=== PATIENT | male | born 1955 | race Hispanic/Latino ===

== ENCOUNTER 2017-06-17 17:42 | Emergency (ER) | payer BC, MEDICARE ==
[2017-06-17] MEDS ORDERED: ZOFRAN ONE (17:45)
[2017-06-17] MEDS ORDERED: GLUCAGEN IV ONE (17:50)
[2017-06-17] MEDS ORDERED: GLUCAGEN ONE (17:50)
--- NOTE | 2017-06-17 17:52 | Emergency Department Report ---
ED General Adult HPI - General Chief complaint: Skin/Abscess/Foreign Body Stated complaint: OBSTRUCTION OF THE AIRWAY Time Seen by Provider: 06/17/17 17:51 Source: patient, RN notes reviewed, old records reviewed Mode of arrival: Ambulatory Limitations: No Limitations - History of Present Illness Initial comments: This is a 62-year-old male. He is previously unknown to me. He reports that past medical history of COPD. He presents to the ER complaining of feeling like a Prozac pill is stuck in his throat. He took the pill prior to arriving at the emergency room. He denies headache, neck pain, chest pain, abdominal pain, shortness of breath. He feels like the pill is stuck in his mouth. His symptoms are constant. They do not have exacerbating or relieving factors. -: Sudden Severity scale (0 -10): 0 Consistency: constant Improves with: none Worsens with: none Associated Symptoms: denies: confusion, chest pain, loss of appetite, malaise - Related Data Previous Rx's Medication Instructions Recorded Last Taken Type Ondansetron [Zofran Odt] 4 mg PO QID PRN #20 tab.rapdis 06/17/17 Unknown Rx Allergies Allergy/AdvReac Type Severity Reaction Status Date / Time No Known Allergies Allergy Unverified 05/30/15 11:00 ED Review of Systems ROS: Stated complaint: OBSTRUCTION OF THE AIRWAY Other details as noted in HPI Constitutional: denies: fever Eyes: denies: vision change ENT: denies: epistaxis Respiratory: denies: cough Cardiovascular: denies: chest pain Gastrointestinal: denies: abdominal pain Genitourinary: as per HPI Musculoskeletal: as per HPI Skin: as per HPI Neurological: denies: confusion Psychiatric: anxiety ED Past Medical Hx - Past Medical History Hx of Cancer: Yes (melanoma) Hx COPD: Yes Additional medical history: "digestive problems" - Surgical History Past Surgical History?: Yes - Social History Smoking Status: Current Every Day Smoker - Medications Home Medications: Home Medications Medication Instructions Recorded Confirmed Last Taken Type Ondansetron [Zofran Odt] 4 mg PO QID PRN #20 tab.rapdis 06/17/17 Unknown Rx ED Physical Exam - General Limitations: No Limitations General appearance: alert, in no apparent distress - Head Head exam: Present: atraumatic, normocephalic - Eye Eye exam: Present: normal appearance, EOMI. Absent: nystagmus - ENT ENT exam: Present: normal exam, normal orophraynx, mucous membranes moist, normal external ear exam - Neck Neck exam: Present: normal inspection, full ROM. Absent: tenderness, meningismus - Respiratory Respiratory exam: Present: normal lung sounds bilaterally. Absent: respiratory distress, wheezes, rales, rhonchi, stridor, chest wall tenderness, accessory muscle use, decreased breath sounds, prolonged expiratory - Cardiovascular Cardiovascular Exam: Present: normal rhythm, tachycardia, normal heart sounds. Absent: systolic murmur, diastolic murmur, rubs, gallop - GI/Abdominal GI/Abdominal exam: Present: soft, normal bowel sounds. Absent: distended, tenderness, guarding, rebound, rigid, pulsatile mass - Rectal Rectal exam: Present: deferred - Extremities Exam Extremities exam: Present: normal inspection, full ROM, normal capillary refill. Absent: pedal edema, joint swelling, calf tenderness - Back Exam Back exam: Present: normal inspection, full ROM. Absent: tenderness, CVA tenderness (R), CVA tenderness (L), muscle spasm, paraspinal tenderness, vertebral tenderness - Neurological Exam Neurological exam: Present: alert, oriented X3, normal gait, other (Extraocular movements intact. Tongue midline. No facial droop. Facial sensation intact to light touch in the V1, V2, V3 distribution bilaterally. 5 and 5 strength in 4 extremities.. Sensation is intact to light touch in 4 extremities.). Absent : motor sensory deficit - Psychiatric Psychiatric exam: Present: anxious - Skin Skin exam: Present: warm, dry, intact, normal color. Absent: rash ED Course Vital Signs 06/17/17 17:48 Temperature 97.8 F Pulse Rate 108 H Respiratory 13 Rate Blood Pressure 118/74 [Right] O2 Sat by Pulse 97 Oximetry ED Medical Decision Making - Lab Data Result diagrams: 06/17/17 18:34 06/17/17 18:34 Vital Signs 06/17/17 17:48 Temperature 97.8 F Pulse Rate 108 H Respiratory 13 Rate Blood Pressure 118/74 [Right] O2 Sat by Pulse 97 Oximetry Lab Results 06/17/17 06/17/17 06/17/17 Range/Units 18:34 18:34 18:34 WBC 9.4 (4.5-11.0) K/mm3 RBC 4.12 (3.65-5.03) M/mm3 Hgb 13.4 (11.8-15.2) gm/dl Hct 40.4 (35.5-45.6) % MCV 98 H (84-94) fl MCH 33 H (28-32) pg MCHC 33 (32-34) % RDW 14.1 (13.2-15.2) % Plt Count 256 (140-440) K/mm3 Lymph % (Auto) 27.5 (13.4-35.0) % [place] % (Auto) 5.5 (0.0-7.3) % Eos % (Auto) 0.5 (0.0-4.3) % Baso % (Auto) 0.5 (0.0-1.8) % Lymph # 2.6 (1.2-5.4) K/mm3 [place] # 0.5 (0.0-0.8) K/mm3 Eos # 0.0 (0.0-0.4) K/mm3 Baso # 0.0 (0.0-0.1) K/mm3 Seg Neutrophils % 66.0 (40.0-70.0) % Seg Neutrophils # 6.2 (1.8-7.7) K/mm3 PT 12.0 L (12.2-14.9) Sec. INR 0.90 (0.87-1.13) APTT 25.0 (24.2-36.6) Sec. Sodium 135 L (137-145) mmol/L Potassium 4.4 (3.6-5.0) mmol/L Chloride 96.2 L (98-107) mmol/L Carbon Dioxide 22 (22-30) mmol/L Anion Gap 21 mmol/L BUN 10 (9-20) mg/dL Creatinine 0.9 (0.8-1.5) mg/dL Estimated GFR > 60 ml/min BUN/Creatinine Ratio 11.11 % Glucose 89 (75-100) mg/dL Calcium 9.2 (8.4-10.2) mg/dL - Radiology Data Radiology results: image reviewed interpreted by me: X-ray the chest demonstrates chronic emphysematous changes, no acute disease. No obvious retained foreign body. Soft tissue neck x-ray demonstrates no obvious retained foreign body. - Medical Decision Making Differential diagnosis: Foreign body, upper airway, partial obstruction, now resolved Assessment and plan: 62-year-old male with complaint of subjective pill that is lodged in his esophagus. He is afebrile, initially tachycardic but this has since resolved. He is speaking full sentences with no stridor or dysphonia and no desaturation. Plain films demonstrate no obvious radiopaque foreign body. The patient is given Zofran, glucagon, reports his symptoms are markedly improved, and indicates he is able to tolerate liquid feeds. Furthermore, I my direct examination and also has been the nurse's examination, he is able to tolerate liquid feeds. Patient has a private wide load escort he can follow- up with. He will be discharged at this time. His tachycardia has resolved on my physical examination. Return precautions are reviewed. Critical care attestation.: If time is entered above; I have spent that time in minutes in the direct care of this critically ill patient, excluding procedure time. ED Disposition Clinical Impression: History of foreign body aspiration Disposition: - TO HOME OR SELFCARE Is pt being admited?: No Does the pt Need Aspirin: No Condition: Stable Instructions: Foreign Body Ingestion (ED) Additional Instructions: Continue current outpatient medications. Follow up with your wide load escort within the next 7-10 days. Return to the ER right away with fevers, chills, chest pain, shortness of breath, intractable nausea or vomiting , confusion, inability to tolerate liquid feeds. Referrals: PRIMARY CARE, [Primary Care Provider] - 3-5 Days AREN KATE MD [Staff Physician] - 3-5 Days
[2017-06-17] MEDS ORDERED: ZOFRAN IV ONE (17:55)
[2017-06-17 18:47] LABS: Basophils % (Auto) 0.5 % (0.0-1.8); Eosinophils % (Auto) 0.5 % (0.0-4.3); Hematocrit 40.4 % (35.5-45.6); Hemoglobin 13.4 gm/dl (11.8-15.2); Mean Corpuscular HGB Conc 33 % (32-34); Mean Corpuscular Hemoglobin 33 pg (28-32); Mean Corpuscular Volume 98 fl (84-94); Platelet Count 256 K/mm3 (140-440); Red Blood Count 4.12 M/mm3 (3.65-5.03); Red Cell Distribution Width 14.1 % (13.2-15.2); White Blood Count 9.4 K/mm3 (4.5-11.0)
[2017-06-17 18:55] LABS: INR 0.9 (0.87-1.13)
[2017-06-17 19:09] LABS: Anion Gap 21 mmol/L; BUN/Creatinine Ratio 11.11; Blood Urea Nitrogen 10 mg/dL (9-20); Calcium 9.2 mg/dL (8.4-10.2); Carbon Dioxide 22 mmol/L (22-30); Chloride 96.2 mmol/L (98-107); Glucose 89 mg/dL (75-100); Potassium 4.4 mmol/L (3.6-5.0); Sodium 135 mmol/L (137-145)
[2017-06-17 19:55] VITALS: BP 111/65
--- NOTE | 2017-06-18 09:20 | XRay Report ---
Single view chest: History: Foreign body. Findings: Normal cardiomediastinal silhouette. Trachea is midline. Suspicion of COPD. No consolidation or pleural effusion. No radiopaque foreign body. Impression: COPD. No acute lung changes.
--- NOTE | 2017-06-18 09:21 | XRay Report ---
Soft tissue neck 3 views: History: Foreign body. Findings: Cervical spondylosis. Normal prevertebral soft tissue. Normal air Column. No radiopaque foreign body. Impression: No radiopaque foreign body seen.
== END 2017-06-17 19:45 | disposition home or self-care (01) ==
LOC: ED 17:42
DX: T17.208A Unspecified foreign body in pharynx causing other injury, initial encounter (principal); Y92.9 Unspecified place or not applicable; J44.9 Chronic obstructive pulmonary disease, unspecified; F17.200 Nicotine dependence, unspecified, uncomplicated
CPT/HCPCS: 36415; 70360; 71010; 80048; 85025; 85610; 85730; 96374; 96375; 99284; J1610; J2405

== ENCOUNTER 2019-04-01 20:46 | Emergency (ER) | payer BC, MEDICARE ==
[2019-04-01] MEDS ORDERED: SOLU-Medrol IV ONE (21:41)
[2019-04-01] MEDS ORDERED: PROVENTIL IH ONE (21:41)
[2019-04-01] MEDS ORDERED: ATROVENT IH ONE (21:41)
[2019-04-01 22:03] LABS: Basophils % (Auto) 0.2 % (0.0-1.8); Eosinophils # (Auto) 0.1 K/mm3 (0.0-0.4); Eosinophils % (Auto) 1.1 % (0.0-4.3); Hematocrit 36.2 % (35.5-45.6); Hemoglobin 12.4 gm/dl (11.8-15.2); Lymphocytes # (Auto) 2.2 K/mm3 (1.2-5.4); Lymphocytes % (Auto) 22.9 % (13.4-35.0); Mean Corpuscular HGB Conc 34 % (32-34); Mean Corpuscular Volume 91 fl (84-94); Platelet Count 190 K/mm3 (140-440); Red Blood Count 3.97 M/mm3 (3.65-5.03); Red Cell Distribution Width 14.9 % (13.2-15.2)
[2019-04-01 22:14] LABS: INR 0.95 (0.87-1.13)
[2019-04-01 22:15] LABS: Partial Thromboplastin Time 31.5 Sec. (24.2-36.6)
[2019-04-01 22:26] LABS: BUN/Creatinine Ratio 11; Blood Urea Nitrogen 10 mg/dL (9-20); Calcium 8.7 mg/dL (8.4-10.2); Hemolysis Index 3
--- NOTE | 2019-04-01 23:00 | Emergency Department Report ---
- General Chief Complaint: Dyspnea/Respdistress Stated Complaint: SOB Time Seen by Provider: 04/01/19 21:28 Source: patient Mode of arrival: Ambulatory Limitations: No Limitations - History of Present Illness Initial Comments: 64-year-old male history of COPD (2 L at home), and CHF presents to ED with complaint of productive cough 1 week shortness of breath. Patient reports cou gh productive of green sputum. Denies fever. States has been using his nebulizer treatments at home. Denies swelling to the lower extremities. Reports chest pain with cough. MD Complaint: cough -: week(s) (1) Severity: moderate Quality: aching Consistency: constant Improves With: nothing Worsens With: nothing Associated Symptoms: cough, chest pain (with cough), shortness of breath. denies: fever, chills - Related Data Home Medications Medication Instructions Recorded Confirmed Last Taken ALBUTEROL Inhaler (OR & NICU) 1 - 2 puff IH BID 07/04/18 10/10/18 09/03/18 [ProAir HFA Inhaler] Budesonide [Pulmicort] 0.5 mg IH Q12H 07/04/18 10/10/18 09/02/18 Carbidopa/Levodopa 25-100 [Sinemet 1 each PO TID 07/04/18 10/10/18 09/03/18 25/100] FLUoxetine HCL [Fluoxetine HCl] 80 mg PO DAILY 07/04/18 10/10/18 09/02/18 Fluticasone/Salmeterol [Advair 1 puff IH BID 07/04/18 10/10/18 09/02/18 Diskus 250-50 mcg] Hyoscyamine Sulfate [Hyoscyamine 0.375 mg PO BID 07/04/18 10/10/18 09/03/18 Sulfate ER] Ipratropium/Albuterol Sulfate 1 ampul IH Q6HR 07/04/18 10/10/18 09/03/18 [DUONEB *Not for PRN Use*] Memantine [Namenda] 10 mg PO BID 07/04/18 10/10/18 09/03/18 Omeprazole 40 mg PO DAILY 07/04/18 10/10/18 09/02/18 Sucralfate [Carafate] 1 gm PO QPM 07/04/18 10/10/18 09/02/18 Tamsulosin HCl [Flomax] 0.8 mg PO QPM 07/04/18 10/10/18 09/03/18 Tiotropium Beth[place] [Spiriva] 18 mcg IH DAILY 07/04/18 10/10/18 09/03/18 clonazePAM [Clonazepam] 1 mg PO QID 07/04/18 10/10/18 09/03/18 traZODone [Desyrel] 400 mg PO QPM 07/04/18 10/10/18 09/02/18 Previous Rx's Medication Instructions Recorded Last Taken Type Amiodarone [Cordarone 200 MG TAB] 200 mg PO BID #60 tablet 07/12/18 09/02/18 Rx Apixaban [Eliquis] 5 mg PO Q12HR #60 tablet 07/12/18 09/03/18 Rx Carvedilol [Coreg] 3.125 mg PO BID #60 tablet 07/12/18 09/02/18 Rx Folic Acid [Folvite] 1 mg PO QDAY #30 tablet 07/12/18 09/03/18 Rx Furosemide [Lasix TAB] 40 mg PO QDAY #30 tablet 07/12/18 09/03/18 Rx Thiamine [Vitamin B-1] 100 mg PO QDAY #30 tablet 07/12/18 09/03/18 Rx Lisinopril [Zestril TAB] 2.5 mg PO QDAY #30 tablet 09/05/18 Unknown Rx ALBUTEROL NEB's [Proventil 0.083% 2.5 mg IH Q4HRT PRN #60 nebu 10/13/18 Unknown Rx NEBS] Budesonide [Pulmicort Respules] 0.5 mg IH Q12HRT #60 nebu 10/13/18 Unknown Rx Fluticasone [Flonase] 1 spray NS QDAY PRN #1 bottle 10/13/18 Unknown Rx Ipratropium/Albuterol Sulfate 1 ampul IH TIDRT #30 ampul.neb 10/13/18 Unknown Rx [DUONEB *Not for PRN Use*] Prednisone [predniSONE 10 mg 10 mg PO .TAPER #1 tab.ds.pk 10/13/18 Unknown Rx (6-Day Pack, 21 Tabs)] Albuterol Sulfate [Proventil Hfa] 2 puff IH Q4HR PRN #1 hfa.aer.ad 04/02/19 Unknown Rx Benzonatate [Tessalon Perles] 100 mg PO Q8HR PRN #20 capsule 04/02/19 Unknown Rx levoFLOXacin [Levaquin] 750 mg PO QDAY #4 tablet 04/02/19 Unknown Rx predniSONE [Deltasone] 50 mg PO QDAY #5 tab 04/02/19 Unknown Rx Allergies Allergy/AdvReac Type Severity Reaction Status Date / Time No Known Allergies Allergy Unverified 05/30/15 11:00 ED Review of Systems ROS: Stated complaint: SOB Other details as noted in HPI Comment: All other systems reviewed and negative Constitutional: denies: chills, fever Respiratory: cough, shortness of breath, wheezing Cardiovascular: chest pain (only with cough) Musculoskeletal: other (denies lower extremity swelling) ED Past Medical Hx - Past Medical History Previous Medical History?: Yes Hx Congestive Heart Failure: Yes (nonischemic cardiopathy EF of 10%) Hx Diabetes: No Hx Asthma: No Hx COPD: Yes Hx Dementia: Yes Additional medical history: "digestive problems", parkinsons, IBS. Cardiac cath here 06/2018 - Surgical History Past Surgical History?: Yes Additional Surgical History: MELANOMA REMOVAL, CARDIAC ABLASION,defib vest V- Fib, EF 20% - Social History Smoking Status: Current Every Day Smoker Substance Use Type: None - Medications Home Medications: Home Medications Medication Instructions Recorded Confirmed Last Taken Type ALBUTEROL Inhaler (OR & NICU) 1 - 2 puff IH BID 07/04/18 10/10/18 09/03/18 History [ProAir HFA Inhaler] Budesonide [Pulmicort] 0.5 mg IH Q12H 07/04/18 10/10/18 09/02/18 History Carbidopa/Levodopa 25-100 [Sinemet 1 each PO TID 07/04/18 10/10/18 09/03/18 History 25/100] FLUoxetine HCL [Fluoxetine HCl] 80 mg PO DAILY 07/04/18 10/10/18 09/02/18 History Fluticasone/Salmeterol [Advair 1 puff IH BID 07/04/18 10/10/18 09/02/18 History Diskus 250-50 mcg] Hyoscyamine Sulfate [Hyoscyamine 0.375 mg PO BID 07/04/18 10/10/18 09/03/18 History Sulfate ER] Ipratropium/Albuterol Sulfate 1 ampul IH Q6HR 07/04/18 10/10/18 09/03/18 History [DUONEB *Not for PRN Use*] Memantine [Namenda] 10 mg PO BID 07/04/18 10/10/18 09/03/18 History Omeprazole 40 mg PO DAILY 07/04/18 10/10/18 09/02/18 History Sucralfate [Carafate] 1 gm PO QPM 07/04/18 10/10/18 09/02/18 History Tamsulosin HCl [Flomax] 0.8 mg PO QPM 07/04/18 10/10/18 09/03/18 History Tiotropium [place] [Spiriva] 18 mcg IH DAILY 07/04/18 10/10/18 09/03/18 History clonazePAM [Clonazepam] 1 mg PO QID 07/04/18 10/10/18 09/03/18 History traZODone [Desyrel] 400 mg PO QPM 07/04/18 10/10/18 09/02/18 History Amiodarone [Cordarone 200 MG TAB] 200 mg PO BID #60 tablet 07/12/18 10/10/18 09/02/18 Rx Apixaban [Eliquis] 5 mg PO Q12HR #60 tablet 07/12/18 10/10/18 09/03/18 Rx Carvedilol [Coreg] 3.125 mg PO BID #60 tablet 07/12/18 10/10/18 09/02/18 Rx Folic Acid [Folvite] 1 mg PO QDAY #30 tablet 07/12/18 10/10/18 09/03/18 Rx Furosemide [Lasix TAB] 40 mg PO QDAY #30 tablet 07/12/18 10/10/18 09/03/18 Rx Thiamine [Vitamin B-1] 100 mg PO QDAY #30 tablet 07/12/18 10/10/18 09/03/18 Rx Lisinopril [Zestril TAB] 2.5 mg PO QDAY #30 tablet 09/05/18 10/10/18 Unknown Rx ALBUTEROL NEB's [Proventil 0.083% 2.5 mg IH Q4HRT PRN #60 nebu 10/13/18 Unknown Rx NEBS] Budesonide [Pulmicort Respules] 0.5 mg IH Q12HRT #60 nebu 10/13/18 Unknown Rx Fluticasone [Flonase] 1 spray NS QDAY PRN #1 bottle 10/13/18 Unknown Rx Ipratropium/Albuterol Sulfate 1 ampul IH TIDRT #30 ampul.neb 10/13/18 Unknown Rx [DUONEB *Not for PRN Use*] Prednisone [predniSONE 10 mg 10 mg PO .TAPER #1 tab.ds.pk 10/13/18 Unknown Rx (6-Day Pack, 21 Tabs)] Albuterol Sulfate [Proventil Hfa] 2 puff IH Q4HR PRN #1 hfa.aer.ad 04/02/19 Unknown Rx Benzonatate [Tessalon Perles] 100 mg PO Q8HR PRN #20 capsule 04/02/19 Unknown Rx levoFLOXacin [Levaquin] 750 mg PO QDAY #4 tablet 04/02/19 Unknown Rx predniSONE [Deltasone] 50 mg PO QDAY #5 tab 04/02/19 Unknown Rx ED Physical Exam - General Limitations: No Limitations General appearance: alert, in no apparent distress - Head Head exam: Present: atraumatic, normocephalic - Eye Eye exam: Present: normal appearance - ENT ENT exam: Present: mucous membranes moist - Neck Neck exam: Present: normal inspection - Respiratory Respiratory exam: Present: wheezes (scattered). Absent: respiratory distress - Cardiovascular Cardiovascular Exam: Present: normal rhythm, tachycardia - GI/Abdominal GI/Abdominal exam: Present: soft. Absent: distended, tenderness - Extremities Exam Extremities exam: Present: other (trace edema BLE) - Neurological Exam Neurological exam: Present: alert, oriented X3 - Psychiatric Psychiatric exam: Present: normal affect, normal mood - Skin Skin exam: Present: warm, dry, intact, normal color. Absent: rash ED Course Vital Signs 04/01/19 04/01/19 04/01/19 20:50 20:53 21:39 Temperature 99.0 F 99 F Pulse Rate 118 H 105 H Respiratory 20 20 22 Rate Blood Pressure 126/74 126/74 O2 Sat by Pulse 88 94 Oximetry 04/01/19 04/01/19 04/01/19 21:46 22:30 22:46 Temperature Pulse Rate 106 H 107 H 110 H Respiratory 18 10 L 15 Rate Blood Pressure 119/59 117/65 117/65 O2 Sat by Pulse 91 86 84 Oximetry 04/01/19 04/01/19 04/01/19 23:00 23:16 23:30 Temperature Pulse Rate 109 H 107 H 107 H Respiratory 16 21 22 Rate Blood Pressure 117/65 117/65 117/65 O2 Sat by Pulse 91 90 89 Oximetry 04/01/19 04/02/19 04/02/19 23:46 00:00 00:16 Temperature Pulse Rate Respiratory 21 12 14 Rate Blood Pressure 117/65 139/68 139/68 O2 Sat by Pulse 89 90 90 Oximetry 04/02/19 00:30 Temperature Pulse Rate Respiratory 10 L Rate Blood Pressure 139/68 O2 Sat by Pulse 89 Oximetry - Reevaluation(s) Reevaluation #1: 04/02/19 00:14 Pt reports breathing is improved following treatment. Only reports mild headache. CXR shows possible developing infiltrate. Will give levaquin ED Medical Decision Making - Lab Data Result diagrams: 04/01/19 21:53 04/01/19 21:43 - EKG Data -: EKG Interpreted by De EKG shows normal: sinus rhythm, intervals, ST-T waves Rate: normal - EKG Data Interpretation: other (RBBB, LAFB) - Radiology Data Radiology results: report reviewed, image reviewed - Medical Decision Making 64 yo M w/ COPD, productive cough x 1 week. Possible early developing inf iltrate on CXR. O2 sats 91 % on 2L following neb treatment. Vitals from last admission show O2 sats mostly in the low 90s. This is likely pt's baseline. He is in no respiratory distress. Reports that he feels better except for the cough. WBCs normal, pt afebrile. First dose of levaquin given here in the ED. Will give prescription. Advised PCP follow-up. Return precautions given. - Differential Diagnosis COPD, pulm edema, pneumonia Critical care attestation.: If time is entered above; I have spent that time in minutes in the direct care of this critically ill patient, excluding procedure time. ED Disposition Clinical Impression: Pneumonia, COPD (chronic obstructive pulmonary disease) Disposition: DC-01 TO HOME OR SELFCARE Is pt being admited?: No Condition: Stable Instructions: Chronic Obstructive Pulmonary Disease (ED), Community-acquired Pneumonia (ED) Prescriptions: predniSONE [Deltasone] 50 mg PO QDAY #5 tab levoFLOXacin [Levaquin] 750 mg PO QDAY #4 tablet Albuterol Sulfate [Proventil Hfa] 2 puff IH Q4HR PRN #1 hfa.aer.ad PRN Reason: Wheezing Benzonatate [Tessalon Perles] 100 mg PO Q8HR PRN #20 capsule PRN Reason: Cough Referrals: NITO MARTÍNEZ MD [Primary Care Provider] - 2-3 Days Time of Disposition: 01:09
--- NOTE | 2019-04-01 23:40 | XRay Report ---
EXAM: XR CHEST ROUTINE 2V HISTORY: JONATHAN TECHNIQUE: AP chest x-ray dated 04/01/2019 at 2111 hours. COMPARISON: CXR dated October 10, 2018. FINDINGS: There is a left anterior chest wall subclavian cardiac pacer with a single intact wire to the right v entricle. The heart size and mediastinum are within normal limits. There is lung parenchymal hyperinf lation and hyperlucency, especially in the upper lung abbott, in keeping with COPD/centrilobular emph ysema. There is resultant mild crowding of the bronchopulmonary markings in the lower lung abbott, wi th mild platelike atelectasis in the lingula. There is no acute parenchymal infiltrate, pleural effus ion, or pneumothorax seen. The visualized bony structures are within normal limits. IMPRESSION: 1. No evidence for acute cardiopulmonary disease seen. 2. COPD/centrilobular lung parenchymal emphysema. 3. Resultant mild crowding of the bronchopulmonary markings in the lower lung abbott, with mild plat elike atelectasis in the lingula; cannot rule out early developing pneumonic infiltrate in this regio n in the appropriate clinical setting. Recommend clinical correlation and appropriate followup evalua tion as clinically warranted. This document is electronically signed by Woo Mijares MD., Apr 01 2019 11:37:52 PM ET
[2019-04-02] MEDS ORDERED: TYLENOL PO ONE (00:13)
[2019-04-02] MEDS ORDERED: LEVAQUIN PO ONE (00:13)
[2019-04-02 00:37] VITALS: BP 139/68
== END 2019-04-02 01:35 | disposition home or self-care (01) ==
LOC: ED 20:46
DX: J44.9 Chronic obstructive pulmonary disease, unspecified (principal); J18.9 Pneumonia, unspecified organism; F17.200 Nicotine dependence, unspecified, uncomplicated; I50.9 Heart failure, unspecified; G20 Parkinson's disease
CPT/HCPCS: 36415; 71046; 80048; 83880; 84484; 85025; 85610; 85730; 93005; 93010; 94640; 96374; 99284; J2930